=== PATIENT | male | born 1970 | race Caucasian/White ===

== ENCOUNTER 2018-03-10 05:22 | Day surgery (SDC) | payer MEDICAID ==
[~2018-03-10] VITALS: Ht 167.6 cm; Wt 64.9 kg
[2018-03-10 06:16] VITALS: BP 139/83
[2018-03-10] MEDS ORDERED: INSU100V8 SQ (06:51)
[2018-03-10] MEDS ORDERED: LACTATED RINGERS 1,000 ML IV SCH (06:52)
[2018-03-10] MEDS ORDERED: VANCOMYCIN 1,000 MG ONE (06:55)
[2018-03-10] MEDS ORDERED: THROMBIN 5,000 UNIT VIAL TP ONE (06:55)
[2018-03-10] MEDS ORDERED: LIDOCAINE/PF 0.5% ,50ML ONE (06:55)
[2018-03-10] MEDS ORDERED: BUPIVACAINE/PF-EPI 0.25% 1:200K ONE (06:55)
[2018-03-10] MEDS ORDERED: EPINEPHRINE 1 MG/ML, 1ML ONE (06:55)
[2018-03-10] MEDS ORDERED: MIDAZOLAM 1 MG/ML, 2ML ONE (07:16)
[2018-03-10] MEDS ORDERED: FENTANYL PF 100 MCG/2ML ONE (07:16)
[2018-03-10] MEDS ORDERED: DIAZEPAM 5 MG TABLET ONE (07:17)
[2018-03-10] MEDS ORDERED: ONDANSETRON ODT 8 MG PO ONE (07:30)
[2018-03-10] MEDS ORDERED: FAMOTIDINE 20 MG TABLET PO ONE (07:30)
[2018-03-10] MEDS ORDERED: ACETAMINOPHEN 500 MG TABLET PO ONE (07:30)
[2018-03-10] MEDS ORDERED: GABAPENTIN 300 MG CAPSULE PO ONE (07:30)
[2018-03-10] MEDS ORDERED: OXYcodone IR 5MG TABLET PO ONE (07:30)
[2018-03-10] MEDS ORDERED: DIAZEPAM 5 MG TABLET PO ONE (07:30)
[2018-03-10] MEDS ORDERED: ONDANSETRON 2MG/ML, 2ML ONE (07:43)
[2018-03-10] MEDS ORDERED: NEOSTIGMINE 1 MG/ML, 10ML ONE (07:43)
[2018-03-10] MEDS ORDERED: GLYCOPYRROLATE 0.2MG/1ML, 5ML ONE (07:43)
[2018-03-10] MEDS ORDERED: DEXAMETHASONE 4 MG/ML, 1ML ONE (07:43)
[2018-03-10] MEDS ORDERED: SUCCINYLCHOLINE 20 MG/ML, 10ML ONE (07:43)
[2018-03-10] MEDS ORDERED: CEFAZOLIN 1,000 MG ONE (07:43)
[2018-03-10] MEDS ORDERED: ROCURONIUM 10MG/ML,5ML ONE (07:43)
[2018-03-10] MEDS ORDERED: PROPOFOL 10 MG/ML, 20ML ONE (07:43)
[2018-03-10] MEDS ORDERED: MIDAZOLAM 1 MG/ML, 2ML IV PRN (08:30)
[2018-03-10] MEDS ORDERED: DIAZEPAM 5 MG/ML, 2ML IVPush PRN (08:30)
[2018-03-10] MEDS ORDERED: HYDROcodone/APAP 7.5-325MG/15ML UDC PO PRN (08:30)
[2018-03-10] MEDS ORDERED: OXYcodone 5 MG/5 ML ORAL.SOL UDC PO PRN (08:30)
[2018-03-10] MEDS ORDERED: PROMETHAZINE 25 MG/ML, 1ML IV PRN (08:30)
[2018-03-10] MEDS ORDERED: hydrALAzine 20 MG/ML, 1ML IV PRN (08:30)
[2018-03-10] MEDS ORDERED: ONDANSETRON ODT 8 MG PO PRN (08:30)
[2018-03-10] MEDS ORDERED: HYDROmorphone 1 MG/ML, 1ML IV PRN (08:30)
[2018-03-10] MEDS ORDERED: ALBUTEROL SULFATE 2.5 MG/3 ML NPPB PRN (08:30)
[2018-03-10] MEDS ORDERED: FENTANYL PF 100 MCG/2ML IV PRN (08:30)
[2018-03-10] MEDS ORDERED: LABETALOL 5MG/ML, 20ML IV PRN (08:30)
[2018-03-10] MEDS ORDERED: EPHEDRINE 50 MG/ML, 1ML IVPush PRN (08:30)
[2018-03-10] MEDS ORDERED: MEPERIDINE/PF 25MG/0.5ML IVPush PRN (08:30)
== END 2018-03-10 10:28 ==
LOC: OR 05:22 → OUT 10:28
PROVIDERS: ATTEND Orthopaedic Surgery Orthopaedic Surgery of the Spine
DX: M48.061 Spinal stenosis, lumbar region without neurogenic claudication (principal); Z53.9 Procedure and treatment not carried out, unspecified reason; E11.9 Type 2 diabetes mellitus without complications
CPT/HCPCS: 63047; 72114; 82962; J0171; J0330; J0690; J1100; J2001; J2250; J2405; J2704; J2710; J3010; J7120; Q0162; J3370; J3490